=== PATIENT | female | born 1945 | race African-American/Black ===

== ENCOUNTER 2017-10-22 11:33 | Emergency (ER) | payer MEDICARE, OTHER ==
[2017-10-22 12:31] LABS: ADD MAN DIFF? NO
[2017-10-22 12:50] LABS: ALANINE AMINOTRANSFERASE 79 IU/L (13-69); ALBUMIN 4.3 g/dl (3.3-4.9); ALKALINE PHOSPHATASE 140 IU/L (42-121); ANION GAP 18 (8-16); ASPARTATE AMINO TRANSFERASE 72 IU/L (15-46); BILIRUBIN,INDIRECT 1.1 mg/dl (0-1.1); BILIRUBIN,TOTAL 1.1 mg/dl (0.2-1.3); BLOOD UREA NITROGEN 11 mg/dl (7-20); CALCIUM 9.7 mg/dl (8.4-10.2); CARBON DIOXIDE 28 mmol/L (21-31); CHLORIDE 101 mmol/L (97-110); CREATININE 0.72 mg/dl (0.44-1.00); GLUCOSE 91 mg/dl (70-220); LIPASE 138 U/L (23-300); POTASSIUM 3.2 mmol/L (3.5-5.1); SODIUM 144 mmol/L (135-144); TOTAL PROTEIN 7.6 g/dl (6.1-8.1)
[2017-10-22 12:55] LABS: BASOPHILS % 0.3 % (0.0-2.0); EOSINOPHILS % 0.4 % (0.0-7.0); HEMOGLOBIN 13.7 g/dl (12.0-16.0); LYMPHOCYTES # 1.7 10^3/ul (0.8-2.9); LYMPHOCYTES % 17.3 % (15.0-51.0); MEAN CORPUSCULAR HEMOGLOBIN 27.5 pg (29.0-33.0); MEAN CORPUSCULAR HGB CONC 31.9 g/dl (32.0-37.0); MEAN CORPUSCULAR VOLUME 86.3 fl (82.0-101.0); MEAN PLATELET VOLUME 11.3 fl (7.4-10.4); MONOCYTE # 0.6 10^3/ul (0.3-0.9); MONOCYTES % 6.4 % (0.0-11.0); NEUTROPHIL # 7.4 10^3/ul (1.6-7.5); NEUTROPHILS % 75.3 % (39.0-77.0); PLATELET COUNT 208 10^3/UL (140-415); RED BLOOD COUNT 4.98 10^6/ul (4.20-5.40); RED CELL DISTRIBUTION WIDTH 13.8 % (11.5-14.5)
[2017-10-22 12:55] LABS: WHITE BLOOD COUNT 9.9 10^3/ul (4.8-10.8)
[2017-10-22 13:25] LABS: ADD UMIC YES; UR ASCORBIC ACID NEGATIVE (NEGATIVE); UR BILIRUBIN (Dip) NEGATIVE (NEGATIVE); UR BLOOD (Dip) NEGATIVE (NEGATIVE); UR CLARITY CLEAR (CLEAR); UR COLOR YELLOW (YELLOW); UR GLUCOSE (Dip) NEGATIVE (NEGATIVE); UR KETONES (Dip) NEGATIVE (NEGATIVE); UR LEUKOCYTE ESTERASE (Dip) NEGATIVE Leu/ul (NEGATIVE); UR NITRITE (Dip) NEGATIVE (NEGATIVE); UR RBC 0 /HPF (0-5); UR SPECIFIC GRAVITY (Dip) 1.008 (1.003-1.030); UR TOTAL PROTEIN (Dip) 1+ mg/dl (NEGATIVE); UR UROBILINOGEN (Dip) NEGATIVE (NEGATIVE); UR WBC 0 /HPF (0-5)
[2017-10-22] MEDS: SOD CHLORIDE 0.9% 1,000 ML IV (13:45)
[2017-10-22] MEDS: KETOROLAC 15 MG INJ IV (13:45)
[2017-10-22] MEDS: SOD CHLORIDE 0.9% 100 ML (13:54)
[2017-10-22] MEDS: IOHEXOL 300MG/ML 150 ML BTL (13:55)
== END 2017-10-22 15:25 | disposition home or self-care (01) ==
LOC: E/R 11:33
DX: C22.8 Malignant neoplasm of liver, primary, unspecified as to type (principal); R10.84 Generalized abdominal pain; I10 Essential (primary) hypertension; F17.210 Nicotine dependence, cigarettes, uncomplicated
CPT/HCPCS: 36415; 71260; 74176; 74177; 80053; 81001; 83690; 85025; 96374; 99285-25

== ENCOUNTER 2018-04-02 07:47 | Emergency (ER) | payer MEDICARE, OTHER ==
[2018-04-02 08:34] LABS: ADD MAN DIFF? NO
[2018-04-02 08:43] LABS: WHITE BLOOD COUNT 7.2 10^3/ul (4.8-10.8)
[2018-04-02 08:43] LABS: BASOPHILS % 0.4 % (0.0-2.0); EOSINOPHILS % 0.4 % (0.0-7.0); HEMATOCRIT 37.6 % (37.0-47.0); HEMOGLOBIN 11.8 g/dl (12.0-16.0); LYMPHOCYTES # 1.6 10^3/ul (0.8-2.9); LYMPHOCYTES % 22.1 % (15.0-51.0); MEAN CORPUSCULAR HEMOGLOBIN 28.5 pg (29.0-33.0); MEAN CORPUSCULAR HGB CONC 31.4 g/dl (32.0-37.0); MEAN CORPUSCULAR VOLUME 90.8 fl (82.0-101.0); MEAN PLATELET VOLUME 9.6 fl (7.4-10.4); MONOCYTES % 13.8 % (0.0-11.0); NEUTROPHIL # 4.5 10^3/ul (1.6-7.5); NEUTROPHILS % 63.2 % (39.0-77.0); PLATELET COUNT 201 10^3/UL (140-415); RED BLOOD COUNT 4.14 10^6/ul (4.20-5.40); RED CELL DISTRIBUTION WIDTH 18.1 % (11.5-14.5)
[2018-04-02 08:56] LABS: ALANINE AMINOTRANSFERASE 42 IU/L (13-69); ALBUMIN 3.8 g/dl (3.3-4.9); ALBUMIN/GLOBULIN RATIO 0.97; ALKALINE PHOSPHATASE 156 IU/L (42-121); ANION GAP 13 (8-16); ASPARTATE AMINO TRANSFERASE 49 IU/L (15-46); BILIRUBIN,INDIRECT 0.9 mg/dl (0-1.1); BILIRUBIN,TOTAL 0.9 mg/dl (0.2-1.3); BLOOD UREA NITROGEN 12 mg/dl (7-20); CALCIUM 9.6 mg/dl (8.4-10.2); CARBON DIOXIDE 32 mmol/L (21-31); CHLORIDE 101 mmol/L (97-110); CREATININE 0.68 mg/dl (0.44-1.00); GLUCOSE 148 mg/dl (70-220); POTASSIUM 3.6 mmol/L (3.5-5.1); SODIUM 142 mmol/L (135-144); TOTAL PROTEIN 7.7 g/dl (6.1-8.1)
[2018-04-02 09:17] LABS: INR 0.94; PARTIAL THROMBOPLASTIN TIME 28.3 Sec (25.0-35.0); PROTIME 12.7 Sec (11.9-14.9)
[2018-04-02] MEDS: SOD CHLORIDE 0.9% 100 ML (09:25)
[2018-04-02] MEDS: IODIXANOL LOCM 100 ML BTL (09:25)
[2018-04-02] MEDS: PIPER-TAZO 3.375 GM IV (PMX) 100 ML IVPB (10:51)
== END 2018-04-02 12:10 | disposition home or self-care (01) ==
LOC: E/R 07:47
DX: J36 Peritonsillar abscess (principal); I10 Essential (primary) hypertension; C18.9 Malignant neoplasm of colon, unspecified
CPT/HCPCS: 36415; 70491; 80053; 85025; 85610; 85730; 87040; 96374; 99285-25